=== PATIENT | female | born 1960 | race Caucasian/White ===

== ENCOUNTER 2018-05-02 11:01 | Emergency (ER) | payer BC ==
[2018-05-02 11:51] VITALS: BP 161/82
--- NOTE | 2018-05-02 11:55 | UC ---
Respiratory Complaint HPI - HPI Summary HPI Summary: 58 yo female presents with chest congestion and a "deep cough" with fatigue for 1 week. She has felt feverish the last day or two, but has not taken her temperature. She has been taking robtussin with mild relief of cough. Denies chills, sore throat, SOB, chest pain. - History of Current Complaint Chief Complaint: UCGeneralIllness Stated Complaint: CHEST CONGESTION Time Seen by Provider: 05/02/18 11:55 Hx Obtained From: Patient Onset/Duration: Gradual Onset Severity Initially: Mild Severity Currently: Mild Pain Intensity: 1 Pain Scale Used: 0-10 Numeric Character: Cough: Nonproductive - Allergies/Home Medications Allergies/Adverse Reactions: Allergies Allergy/AdvReac Type Severity Reaction Status Date / Time bacitracin Allergy Severe Rash Verified 05/02/18 12:07 ciprofloxacin Allergy Severe See Comment Verified 05/02/18 12:07 metronidazole [From Flagyl] Allergy Severe See Comment Verified 05/02/18 12:07 diphenhydramine Allergy Unknown Palpitation Verified 05/02/18 12:07 s ibuprofen Allergy Unknown See Comment Verified 05/02/18 12:07 neomycin Allergy Unknown Unknown Verified 05/02/18 12:07 [From Neosporin Reaction ([id number])] Details polymyxin B Allergy Unknown Unknown Verified 05/02/18 12:07 [From Neosporin Reaction ([id number])] Details Sulfa (Sulfonamide Allergy Unknown Unknown Verified 05/02/18 12:07 Antibiotics) Reaction Details ACETAZOL Allergy Severe LOCALIZED Uncoded 05/02/18 12:07 RASH Home Medications: Home Medications Estradiol [Yuvafem] 10 mcg VA DAILY 05/02/18 [History Confirmed 05/02/18] PMH/Surg Hx/FS Hx/Imm Hx - Additional Past Medical History Additional PMH: None - Surgical History Surgical History: Yes Surgery Procedure, Year, and Place: HYSTERECTOMY 2009, COLONOSCOPY W/ GI BLEED - Family History Known Family History: Positive: None Family History: no known cardio vascular issues in family - Social History Occupation: Employed Full-time Lives: With Family Alcohol Use: Rare Substance Use Type: None Smoking Status (MU): Never Smoked Tobacco Review of Systems All Other Systems Reviewed And Are Negative: Yes Constitutional: Positive: Fatigue Skin: Positive: Negative Eyes: Positive: Negative ENT: Positive: Negative Respiratory: Positive: Cough Cardiovascular: Positive: Negative Gastrointestinal: Positive: Negative Neurological: Positive: Negative Psychological: Positive: Negative Physical Exam - Summary Physical Exam Summary: GENERAL: NAD. WDWN. No pain distress. SKIN: No rashes, sores, lesions, or open wounds. HEENT: Head: AT/NC Eyes: Conjunctiva clear without inflammation or discharge. Ears: Hearing grossly normal. TMs intact, no bulging, erythema, or edema. Nose: Nasal mucosa pink and moist. NTTP maxillary and frontal sinus. Throat: Posterior oropharynx without exudates, erythema, or tonsillar enlargement. Uvula midline. NECK: Supple. Nontender. No lymphadenopathy. CHEST: Mild wheezing LLL. No r/r. No accessory muscle use. Breathing comfortably and in no distress. CV: RRR. Without m/r/g. Pulses intact. Cap refill <2seconds NEURO: Alert. PSYCH: Age appropriate behavior. Triage Information Reviewed: Yes Vital Signs: Initial Vital Signs Temp 99.2 F 05/02/18 11:43 Pulse 99 05/02/18 11:43 Resp 18 05/02/18 11:43 BP 161/82 05/02/18 11:43 Pulse Ox 100 05/02/18 11:43 Vital Signs Reviewed: Yes Diagnostic Evaluation - Laboratory O2 Sat by Pulse Oximetry: 100 Respiratory Course/Dx - Course Course Of Treatment: CXR: IMPRESSION: NO ACTIVE CARDIOPULMONARY DISEASE. Suspect bronchitis. Will treat with albuterol inhaler and tessalon. Advised to continue OTC medicine and f/u with PCP if symptoms do not improve. - Differential Dx/Diagnosis Provider Diagnoses: Bronchitis Discharge - Sign-Out/Discharge Documenting (check all that apply): Patient Departure All imaging exams completed and their final reports reviewed: Yes - Discharge Plan Condition: Stable Disposition: HOME Prescriptions: Albuterol HFA INHALER* [Ventolin HFA Inhaler*] 1 - 2 puff INH Q6H PRN #1 mdi PRN Reason: Cough Benzonatate CAP* [Tessalon 100 MG CAP*] 100 mg PO TID PRN #21 cap PRN Reason: Cough Patient Education Materials: Acute Bronchitis (ED) Referrals: Mary Villanueva MD [Primary Care Provider] - Additional Instructions: If you develop a fever, shortness of breath, chest pain, new or worsening symptoms - please call your PCP or go to the ED. Your blood pressure was high at todays visit. Please see your primary provider within 4 weeks for recheck and re-evaluation. - Billing Disposition and Condition Condition: STABLE Disposition: Home
== END 2018-05-02 13:21 | disposition home or self-care (01) ==
LOC: UCEAST 11:01
DX: J40 Bronchitis, not specified as acute or chronic (principal); Z88.2 Allergy status to sulfonamides; Z88.1 Allergy status to other antibiotic agents; Z88.8 Allergy status to other drugs, medicaments and biological substances; Z88.6 Allergy status to analgesic agent
CPT/HCPCS: 71046; 99212; G0463

== ENCOUNTER 2019-07-15 10:19 | Emergency (ER) | payer BC ==
--- OUTSIDE RECORDS SUMMARY | 2019-07-15 10:29 | XMS REPORT | Continuity of Care Document ---
:1960 External Reference #:[id number] Author Name Annamarie Champion PA-C Address [address] [place] [address] Care Team Providers Name Role Phone Mary Villanueva M.D. - Internal Care Team Information [employer] [phone] Medicine Problems Active Problems Provider Date Impacted cerumen Jose Kenyon M.D. Onset: 12/16/2010 Hearing loss Jose Kenyon M.D. Onset: 11/12/2011 Acute otitis externa Jose Kenyon M.D. Onset: 01/22/2013 Acute upper respiratory infection Jose Kenyon M.D. Onset: 2013 Essential hypertension Jose Kenyon M.D. Onset: 03/25/2015 Social History Type Date Description Comments Sex Unknown Tobacco Use Start: Unknown Never Smoked Cigarettes Tobacco Use Start: Unknown has never smoked cigars Tobacco Use Start: Unknown has never smoked a pipe Smokeless Tobacco has never used smokeless tobacco ETOH Use Currently rarely consumes alcohol Tobacco Use Start: Unknown Patient has never smoked Smoking Status Reviewed: 05/28/18 Patient has never smoked Allergies, Adverse Reactions, Alerts Active Allergies Reaction Severity Comments Date Sulfa 01/13/2005 Acetasol 01/13/2005 Flagyl racing heart rate 02/29/2012 Cipro 02/29/2012 Bacitracin rash 02/29/2012 Neosporin 04/30/2013 Ibuprofen 11/17/2015 Medications Active Medications SIG Qnty Indications Ordering Provider Date Mometasone Furoate apply to affected 15gm Jose Mtz 04/06/2016 0.1% area twice a day Rin Kenyon Ointment as needed Vitamin D & Magnesium Unknown 400 MG Fish Oil take one po prn Self 500mg Triamcinolone apply to effected CreMary whitlock, Acetonide area two times per M.D. 0.1% Cream day Clobetasol Propionate Apply Topically To Unknown Affected Area(S) 0.05% Ointment Two Times Daily For 2 Weeks, Then Decrease Healy Time Daily For 1 Week, Then as Needed EstrLogan Morilloorajoseph 0.1mg/GM Cream M.D. Albuterol Sulfate HFA CrepeHiwot knowlesh, M.D. 108(90Base) mcg/Act Aerosol Symbicort CreHiwot whitlockh, 160-4.5mcg/Act M.D. Aerosol Immunizations CPT Code Status Date Vaccine Lot # [id number] Given Unknown Influenza Virus Vaccine, 3 Years Of Age And Above, Intramuscular 16081 Refused 11/26/2014 Prevnar 13 For Intramuscular Use Vital Signs Date Vital Result Comment 06/19/2019 3:10pm Weight 145.00 lb Weight 65.772 kg Height 68.75 inches 5'8.75" Height in cm's 174.6 cm BMI (Body Mass Index) 21.6 kg/m2 04/11/2019 2:28pm Weight 145.00 lb Weight 65.772 kg Height 68.75 inches 5'8.75" Height in cm's 174.6 cm BMI (Body Mass Index) 21.6 kg/m2 Results Description No Information Available Procedures Date Code Description Status 06/19/2019 67076 Removal Wax Impaction Completed 04/11/2019 66612 Removal Wax Impaction Completed 02/16/2019 56579 Removal Wax Impaction Completed Medical Devices Description No Information Available Encounters Description No Information Available Assessments Date Code Description Provider 06/19/2019 H61.23 Impacted cerumen, bilateral Annamarie Champion PA-C 04/11/2019 H61.23 Impacted cerumen, bilateral Annamarie Champion PA-C 02/16/2019 H61.23 Impacted cerumen, bilateral Annamarie Champion PA-C Plan of Treatment No Information Available Functional Status Description No Information Available Mental Status Description No Information Available Referrals Description No Information Available
--- OUTSIDE RECORDS SUMMARY | 2019-07-15 10:29 | XMS REPORT | Continuity of Care Document ---
:1960 External Reference #:[id number] Author Name Annamarie Martínez N.P. (transmitted by agent of provider Saranya Mccrary) Address [address] [facility] [place] [address] Care Team Providers Name Role Phone Mary Villanueva MD - Internal Medicine Care Team Information Sql Database Developer Problems Description No Information Available Social History Type Date Description Comments Sex Unknown ETOH Use Occasionally consumes alcohol Tobacco Use Start: Unknown Patient has never smoked Smoking Status Reviewed: 05/31/19 Patient has never smoked Exercise Type/Frequency Exercises regularly Allergies, Adverse Reactions, Alerts Active Allergies Reaction Severity Comments Date Sulfa 06/12/2012 Cardio-Green 06/12/2012 Monistat 06/12/2012 Acetosal local rash 06/12/2012 Bacitracin local rash 06/12/2012 Terconazole itching 01/04/2018 Ciprofloxacin 01/04/2018 Flagyl 01/04/2018 Ibuprofen Flushing 03/01/2019 Medications Active Medications SIG Qnty Indications Ordering Date Provider Estrace 0.5grams per 42.500gm Yoanna Sierra, 09/18/2018 0.1mg/GM Cream vagina 2x/week Vitamin D-1000 Mary Villanueva, 06/12/2012 Maximum Strength 1000Unit Tablets Magnesium 1 by mouth twice Unknown 300mg a day Capsules Mometasone Furoate apply ointment Unknown 0.1% topically to Ointment affected area twice daily on elbows for 10 days Fish Oil 1 by mouth twice Unknown 1000mg a day Capsules Clobetasol Propionate apply sparingly 30gm Yoanna Sierra, to effected area 0.05% Cream of vulva 2x/week Triamcinolone apply twice a day 30gm Yoanna Sierra, Acetonide to perineum until MD 0.1% Cream clear Proair HFA 2 puffs every 4 Unknown 108(90Base) hours as needed mcg/Act Aerosol Acetaminophen 2 every 4 hours Unknown 325mg as needed for Tablets pain Immunizations Description No Information Available Vital Signs Date Vital Result Comment 05/31/2019 10:54am Height 68 inches 5'8" Weight 145.00 lb Heart Rate 65 /min BP Systolic 135 mmHg BP Diastolic 80 mmHg O2 % BldC Oximetry 98 % BMI (Body Mass Index) 22.0 kg/m2 03/01/2019 10:25am Height 68 inches 5'8" Weight 148.12 lb Heart Rate 70 /min BP Systolic 140 mmHg BP Diastolic 80 mmHg BMI (Body Mass Index) 22.5 kg/m2 Results Description No Information Available Procedures Date Code Description Status 03/09/2019 38197199 Mammogram Completed 02/10/2018 40190023 Mammogram Completed 02/07/2017 37643401 Mammogram Completed 10/18/2011 20009006 Colonoscopy Completed Medical Devices Description No Information Available Encounters Description No Information Available Assessments Date Code Description Provider 03/01/2019 Z01.419 Encounter for gynecological examination Yoanna Sierra MD (general) (routine) without abnormal findings 03/01/2019 N76.3 Subacute and chronic vulvitis Yoanna Sierra MD 03/01/2019 Z12.31 Encounter for screening mammogram for malignant Yoanna Sierra MD neoplasm of breast Plan of Treatment Future Appointment(s):08/21/2019 9:30 am - Yoanna Sierra MD at [facility]12/18/2019 11:00 am - Katherine Lr MD at [facility] Dermatology Functional Status Description No Information Available Mental Status Description No Information Available Referrals Description No Information Available
[2019-07-15 10:42] VITALS: BP 164/90
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
== END 2019-07-15 11:21 | disposition home or self-care (01) ==
LOC: UCEAST 10:19
DX: F41.1 Generalized anxiety disorder (principal); Z73.3 Stress, not elsewhere classified; Z88.6 Allergy status to analgesic agent; Z91.09 Other allergy status, other than to drugs and biological substances; Z88.2 Allergy status to sulfonamides; Z88.1 Allergy status to other antibiotic agents; R07.9 Chest pain, unspecified; Z88.8 Allergy status to other drugs, medicaments and biological substances
CPT/HCPCS: 93005; 99211; G0463